=== PATIENT | female | born 1995 | race Two or more races ===

== ENCOUNTER 2022-09-16 18:52 | Inpatient (IN) | payer OTHER ==
[~2022-09-16] VITALS: Ht 149.9 cm; Wt 61.2 kg
== END 2022-09-19 16:48 | disposition home or self-care (01) | DRG 832 ==
LOC: ER 18:52 → SEC-K 09-17 18:58 → SURH 09-17 18:58
PROVIDERS: ADMIT Obstetrics & Gynecology Obstetrics; ATTEND Obstetrics & Gynecology Obstetrics
PROC: BT43ZZZ Ultrasonography of Bilateral Kidneys (ICD-10-PCS; 2022-09-16)
PROC: 4A1HXCZ Monitoring of Products of Conception, Cardiac Rate, External Approach (ICD-10-PCS; principal; 2022-09-17)
PROC: BY4CZZZ Ultrasonography of Second Trimester, Single Fetus (ICD-10-PCS; 2022-09-17)
PROC: BW30ZZZ Magnetic Resonance Imaging (MRI) of Abdomen (ICD-10-PCS; 2022-09-17)
PROC: BW30ZZZ Magnetic Resonance Imaging (MRI) of Abdomen (ICD-10-PCS; 2022-09-19)
PROC: BW3GZZZ Magnetic Resonance Imaging (MRI) of Pelvic Region (ICD-10-PCS; 2022-09-19)
DX: O99.891 Other specified diseases and conditions complicating pregnancy (principal); N13.39 Other hydronephrosis; Z3A.16 16 weeks gestation of pregnancy; Z20.822 Contact with and (suspected) exposure to COVID-19
CPT/HCPCS: 72198; 74181

== ENCOUNTER 2023-02-05 20:46 | Inpatient (IN) | payer OTHER ==
[~2023-02-05] VITALS: Ht 149.9 cm; Wt 68.0 kg
[2023-02-05] MEDS ORDERED: PRENATAL TABLE1 EAC1 PO (21:47)
[2023-02-05] MEDS ORDERED: ADULT LOW DOSE81 M1 PO (21:48)
== END 2023-02-11 16:40 | disposition home or self-care (01) | DRG 788 ==
LOC: LDR 20:46 → OB/GYN 20:46 → LDR 02-07 12:55 → OB/GYN 02-07 18:01
PROVIDERS: ADMIT Obstetrics & Gynecology Obstetrics; ATTEND Obstetrics & Gynecology Obstetrics
PROC: 4A1HXCZ Monitoring of Products of Conception, Cardiac Rate, External Approach (ICD-10-PCS; 2023-02-05)
PROC: BY4CZZZ Ultrasonography of Second Trimester, Single Fetus (ICD-10-PCS; 2023-02-06)
PROC: 10D00Z1 Extraction of Products of Conception, Low, Open Approach (ICD-10-PCS; principal; 2023-02-07 17:00)
DX: O36.8130 Decreased fetal movements, third trimester, not applicable or unspecified (principal); O35.3XX0 Maternal care for (suspected) damage to fetus from viral disease in mother, not applicable or unspecified; O13.4 Gestational [pregnancy-induced] hypertension without significant proteinuria, complicating childbirth; Z3A.36 36 weeks gestation of pregnancy; Z37.0 Single live birth; Z20.822 Contact with and (suspected) exposure to COVID-19